=== PATIENT | female | born 1990 | race African-American/Black ===

== ENCOUNTER 2023-01-19 21:50 | Emergency (ER) | payer OTHER ==
[2023-01-19 22:19] VITALS: BP 111/78; PULSE 76; RESP 18; TEMP 99; BMI 23.0
[2023-01-20] MEDS ORDERED: AMOX TR/POT CLAV 875MG/125MG TABLETS (FP) PO ONE (00:41)
[2023-01-20] MEDS ORDERED: AMOX TR/POT CLAV 875MG/125MG TABLETS (FP) ONE (00:54)
== END 2023-01-20 01:08 | disposition home or self-care (01) ==
LOC: JER 21:50
DX: R22.42 Localized swelling, mass and lump, left lower limb (principal); L29.9 Pruritus, unspecified; L03.114 Cellulitis of left upper limb; L03.116 Cellulitis of left lower limb; R22.32 Localized swelling, mass and lump, left upper limb
CPT/HCPCS: 73630-TC-LT; 99283-25